=== PATIENT | male | born 1955 | race Caucasian/White ===

== ENCOUNTER → 2022-03-06 | Outpatient (CLI) | payer MEDICARE, OTHER ==
[~2022-03-06] MED LIST: ALEVE 220MG220 MG PO; BAYER PLUS500 MG PO; GINKO BILOBA60 MG PO; GINSENG1 TAB PO; MULTI VITAMINS1 TAB PO; PLAVIX 75MG TAB75 MG PO; TYLENOL ARTHRI650 M1 PO
== END ==
LOC: COL.RAD 09:52
DX: Z12.2 Encounter for screening for malignant neoplasm of respiratory organs (principal); J43.2 Centrilobular emphysema; F17.210 Nicotine dependence, cigarettes, uncomplicated